=== PATIENT | male | born 1965 | race Caucasian/White ===

== ENCOUNTER 2023-07-29 08:36 | Emergency (ER) | payer OTHER ==
[2023-07-29] MEDS ORDERED: Codeine/Promethazine 10-6.25 MG/5 ML Syrup 5 ML UD Cup PO ONE (09:12)
[2023-07-29] MEDS ORDERED: Acetaminophen 500 MG Tab PO ONE (09:12)
[2023-07-29 09:40] LABS: CORONAVIRUS COVID-19 NAA NEGATIVE (NEGATIVE); INFLUENZA A NAA NEGATIVE (NEGATIVE); INFLUENZA B NAA NEGATIVE (NEGATIVE); RESPIRATORY SYNCYTIAL VIR NAA POSITIVE (NEGATIVE)
== END 2023-07-29 10:08 | disposition home or self-care (01) ==
LOC: DL.ED 08:36
DX: J34.89 Other specified disorders of nose and nasal sinuses (principal); B97.4 Respiratory syncytial virus as the cause of diseases classified elsewhere; F17.210 Nicotine dependence, cigarettes, uncomplicated; Z20.822 Contact with and (suspected) exposure to COVID-19; Z88.1 Allergy status to other antibiotic agents
CPT/HCPCS: 0241U; 99283; A9270-GY

== ENCOUNTER 2023-12-18 07:06 | Emergency (ER) | payer OTHER | END 2023-12-18 08:07 | disposition home or self-care (01) | LOC: DL.ED 07:06 | DX: R04.0 Epistaxis (principal); Z88.1 Allergy status to other antibiotic agents | CPT/HCPCS: 99282; 99283 ==